=== PATIENT | male | born 1960 | race Caucasian/White ===

== ENCOUNTER 2023-12-21 06:01 | Day surgery (SDC) | payer MEDICAID ==
[~2023-12-21] VITALS: Ht 182.9 cm; Wt 81.7 kg
[~2023-12-21 06:01] MED LIST: CHONDR SULF A SOD/HYALURONATE 1.05 ML KIT IO ONE; HYALURONATE SOD 8.5MG/0.85ML 10 MG/ML SYRINGE IO ONE; KETOROLAC TROMETHAMINE 0.5% 5 ML OPHTHALMIC SOLUTION ONE; MOXIFLOXACIN HCL 0.5% 3 ML OPHTHALMIC SOLUTION ONE; PHENYLEPHRINE HCL 2.5% 2 ML OPHTHALMIC SOLUTION ONE; RINGERS SOLUTION,LACTATED 500 ML IV ONE; TROPICAMIDE 1% 2 ML OPHTHALMIC SOLUTION ONE
[2023-12-21] MEDS ORDERED: FentaNYL CITRATE PF 100 MCG/2 ML VIAL ONE (06:39)
[2023-12-21] MEDS ORDERED: MIDAZOLAM HCL 2 MG/2 ML VIAL ONE (06:39)
[2023-12-21] MEDS: KETOROLAC TROMETHAMINE 0.5% 5 ML OPHTHALMIC SOLUTION OD SCH (07:21)
[2023-12-21] MEDS: PHENYLEPHRINE HCL 2.5% 2 ML OPHTHALMIC SOLUTION OD SCH (07:21)
[2023-12-21] MEDS: MOXIFLOXACIN HCL 0.5% 3 ML OPHTHALMIC SOLUTION OD SCH (07:21)
[2023-12-21] MEDS: TROPICAMIDE 1% 2 ML OPHTHALMIC SOLUTION OD SCH (07:21)
[2023-12-21] MEDS: RINGERS SOLUTION,LACTATED 500 ML IV ONE (07:21)
[2023-12-21] MEDS: BALANCED SALT 15 ML OPHTHALMIC IRRIG.SOLN ONE (17:35)
[2023-12-21] MEDS: EPINEPHrine 1:1,000 [1 MG/ML] VIAL ONE (17:38)
[2023-12-21] MEDS: LIDOCAINE/PF 1% 2 ML VIAL ONE (17:40)
[2023-12-21] MEDS: TETRACAINE HCL/PF 0.5% 4 ML OPHTHALMIC SOLUTION ONE (17:41)
[2023-12-21] MEDS: POVIDONE-IODINE 5% 30 ML OPHTHALMIC SOLUTION ONE (17:41)
== END 2023-12-21 09:20 | disposition home or self-care (01) ==
LOC: SURGERY 06:01
PROVIDERS: ATTEND Ophthalmology
DX: H25.11 Age-related nuclear cataract, right eye (principal); H40.9 Unspecified glaucoma; Z88.0 Allergy status to penicillin
CPT/HCPCS: 93005; 65820; 66984; J7321; J0171; J3010; J3490; J2250; J7120; V2632